=== PATIENT | female | born 1985 | race Caucasian/White ===

== ENCOUNTER 2017-03-18 01:30 | Observation (INO) | payer BC ==
[~2017-03-18] VITALS: Ht 170.2 cm; Wt 85.1 kg
[~2017-03-18 01:30] MED LIST: COLACE100 M1; CYCLOBENZAPRINE5 M1 PO; DICLEGIS DR 101 EACH PO; FISH OIL 1,2001 EAC7 PO; NEXIUM40 M1 PO; PEPCID20 M1 PO; PRENATAL TABLE1 EAC3 PO; PROBIOTIC1 EAC7 PO; PROCARDIA10 M1 PO; PROGESTERONE200 M1 VG; VISTARIL25 M1
[2017-03-18 07:45] LABS: URINE BILIRUBIN NEGATIVE (NEG); URINE BLOOD NEGATIVE (NEG); URINE GLUCOSE (UA) NEGATIVE (NEG); URINE KETONE NEGATIVE (NEG); URINE LEUKOCYTE ESTERASE POSITIVE (NEG); URINE NITRITE NEGATIVE (NEG); URINE PROTEIN NEGATIVE (NEG); URINE SPECIFIC GRAVITY 1.015 (1.003-1.030)
[2017-03-18 07:46] LABS: URINE APPEARANCE CLEAR; URINE COLOR YELLOW
[2017-03-18 07:52] LABS: URINE BACTERIA 1+; URINE RBC 0 /[HPF] (0-5)
[2017-03-18 12:31] LABS: BASO % 0.2 % (0-2); EOS % 0.3 % (0-7); HCT-HEMATOCRIT 30.4 % (34.0-49.0); HGB-HEMOGLOBIN 10.2 gm/dl (12.0-15.5); IMMATURE GRANULOCYTES ABSOLUTE 0.06 tho/cmm (0-0.03); IMMATURE GRANULOCYTES PERCENT 0.6 % (0-0.3); LYMPH % 19.8 % (20-45); LYMPH ABSOLUTE COUNT 1.8 tho/cmm (0.8-4.5); MCH (MEAN CORPUSCULAR HGB) 31.9 pg (28.0-32.0); MCHC MEAN CORPUSCULAR HGB CONC 33.6 % (32.0-36.0); MEAN PLATELET VOLUME 10.1 cmc (9.4-12.4); MONO % 9.8 % (0-12); MONOCYTE ABSOLUTE COUNT 0.9 tho/cmm (0.0-1.2); NEUTROPHIL ABSOLUTE COUNT 6.4 tho/cmm (1.6-8.0); NEUTROPHIL-AUTOMATED 6.4 tho/cmm (1.6-8.0); NEUTROPHILS % 69.3 % (40-80); PLATELET COUNT 210 tho/cmm (150-450); RED CELL DISTRIBUTION WIDTH 13.6 % (12.4-16.4); WHITE BLOOD COUNT 9.3 tho/cmm (4.0-10.0)
== END 2017-03-20 17:40 ==
LOC: LDR 01:30
PROVIDERS: ADMIT Obstetrics & Gynecology
DX: O60.03 Preterm labor without delivery, third trimester (principal); O30.003 Twin pregnancy, unspecified number of placenta and unspecified number of amniotic sacs, third trimester; Z3A.32 32 weeks gestation of pregnancy; Z90.49 Acquired absence of other specified parts of digestive tract; Z98.890 Other specified postprocedural states; Z79.899 Other long term (current) drug therapy
CPT/HCPCS: G0378; J3105